=== PATIENT | female | born 1975 | race Caucasian/White ===

== ENCOUNTER 2017-06-14 13:28 | Emergency (ER) | payer OTHER ==
[2017-06-14] MEDS ORDERED: Aspirin 81 MG Tab.Chew PO ONE (14:07)
--- NOTE | 2017-06-14 14:12 | EDM.PDOC ---
ED HPI GENERAL MEDICAL PROBLEM - General Chief Complaint: Chest Pain Stated Complaint: CHEST PAIN, SHOULDER PAIN Time Seen by Provider: 06/14/17 13:55 Source of Information: Reports: Patient, Old Records, RN History Limitations: Reports: No Limitations - History of Present Illness INITIAL COMMENTS - FREE TEXT/NARRATIVE: 41 yo female 1 ppd smoker with a FHx of CAD presents with left sided CP that began yesterday while at work. There is radiation to her L arm. Was not exerting herself when the problem began. Pain is worse with deep breathing. No fever. No recent calf pain or leg swelling. Sx's fairly constant and not related to activity other than breathing. Denies SOB. Has no family doctor. Is unaware of diabetes or hyperlipidemia. Onset Date: 06/13/17 Duration: Day(s): (1), Constant Location: Reports: Chest Quality: Reports: Dull Severity: Mild Improves with: Reports: None Worsens with: Reports: Breathing Context: Reports: Other (smoker with a +FHx of CAD) Associated Symptoms: Reports: Chest Pain. 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 (see below) (none) Left Chest Pain Score (Numeric/FACES): 6 - Related Data Allergies Allergy/AdvReac Type Severity Reaction Status Date / Time fentanyl Allergy Rash Verified 12/25/13 14:01 midazolam HCl [From Versed] Allergy Rash Verified 12/25/13 14:01 Home Meds: Home Meds NK [No Known Home Meds] 06/14/17 [History] Past Medical History [employer]ERK History: Reports: - Past Surgical History Female Surgical History: Reports: Section Musculoskeletal Surgical History: Reports: Other (See Below) Other Musculoskeletal Surgeries/Procedures:: arm surgery x2 Social & Family History - Tobacco Use Smoking Status *Q: Current Every Day Smoker Years of Tobacco use: 30 Packs/Tins Daily: 1 - Caffeine Use Caffeine Use: Reports: Coffee, Soda, Tea - Recreational Drug Use Recreational Drug Use: No ED ROS GENERAL - Review of Systems Review Of Systems: See Below Constitutional: Reports: No Symptoms HEENT: Reports: No Symptoms Respiratory: Reports: No Symptoms Cardiovascular: Reports: Chest Pain. Denies: Claudication, Dyspnea on Exertion , Edema, Lightheadedness, Palpitations Endocrine: Reports: No Symptoms GI/Abdominal: Reports: No Symptoms : Reports: No Symptoms Musculoskeletal: Reports: Arm Pain (L arm pain prox to elbow) Skin: Reports: No Symptoms Neurological: Reports: No Symptoms Psychiatric: Reports: No Symptoms ED EXAM, GENERAL - Physical Exam Exam: See Below Exam Limited By: No Limitations General Appearance: Alert, WD/WN, No Apparent Distress Eye Exam: Bilateral Eye: Normal Inspection, PERRL Ears: Normal External Exam, Normal Canal, Hearing Grossly Normal, Normal TMs Ear Exam: Bilateral Ear: Auricle Normal, Canal Normal Nose: Normal Inspection Throat/Mouth: Normal Inspection, Normal Lips, Normal Oropharynx, Normal Voice, No Airway Compromise Head: Atraumatic, Normocephalic Neck: Normal Inspection, Supple Respiratory/Chest: No Respiratory Distress, Lungs Clear, Normal Breath Sounds, No Accessory Muscle Use, Chest Non-Tender Cardiovascular: Regular Rate, Rhythm, No Edema Back Exam: Normal Inspection. No: CVA Tenderness (R), CVA Tenderness (L) Extremities: Normal Inspection, Normal Range of Motion, Non-Tender, No Pedal Edema Neurological: Alert, Oriented, CN II-XII Intact, Normal Cognition, No Motor/ Sensory Deficits Psychiatric: Normal Affect, Normal Mood Skin Exam: Warm, Dry, Intact, Normal Color, No Rash EKG INTERPRETATION EKG Date: 06/14/17 Time: 14:20 Rhythm: NSR Rate (Beats/Min): 74 [place]: Normal P-Wave: Present QRS: Normal ST-T: Normal QT: Normal Comparison: NA - No Prior EKG Course - Vital Signs Last Recorded V/S: Last Vital Signs Temp 35.9 C 06/14/17 13:44 Pulse 86 06/14/17 13:44 Resp 12 06/14/17 13:44 BP 111/66 06/14/17 13:44 Pulse Ox 97 06/14/17 13:44 - Orders/Labs/Meds Orders: Active Orders 24 hr Category Date Time Status Cardiac Monitoring [RC] .As Directed Care 06/14/17 13:59 Active EKG Documentation Completion [RC] ASDIRECTED Care 06/14/17 13:59 Active EKG 12 Lead [EK] Routine Ther 06/14/17 13:59 Ordered Labs: Laboratory Tests 06/14/17 06/14/17 Range/Units 14:21 14:21 D-Dimer, Quantitative < 100 (0.0-400.0) ng/mL Sodium 142 (140-148) mmol/L Potassium 3.7 (3.6-5.2) mmol/L Chloride 107 (100-108) mmol/L Carbon Dioxide 26 (21-32) mmol/L Anion Gap 8.9 (5.0-14.0) mmol/L BUN 10 (7-18) mg/dL Creatinine 0.7 (0.6-1.0) mg/dL Est Cr Clr Drug Dosing 89.48 mL/min Estimated GFR (MDRD) > 60 (>60) Glucose 91 (74-106) mg/dL Calcium 8.7 (8.5-10.1) mg/dL Troponin I < 0.017 (0.000-0.056) ng/mL Meds: Medications Discontinued Medications Generic Name Dose Route Start Last Admin Trade Name Freq PRN Reason Stop Dose Admin Aspirin 324 mg 06/14/17 14:07 06/14/17 14:10 Aspirin PO 06/14/17 14:08 324 mg ONETIME ONE Administration Departure - Departure Time of Disposition: 15:04 Disposition: Home, Self-Care 01 Condition: Good Clinical Impression: Atypical chest pain, Tobacco use disorder Referrals: PCP,None [Primary Care Provider] - Forms: ED Department Discharge - My Orders Last 24 Hours: My Active Orders 06/14/17 13:59 Cardiac Monitoring [RC] .As Directed EKG Documentation Completion [RC] ASDIRECTED EKG 12 Lead [EK] Routine - Assessment/Plan Last 24 Hours: My Active Orders 06/14/17 13:59 Cardiac Monitoring [RC] .As Directed EKG Documentation Completion [RC] ASDIRECTED EKG 12 Lead [EK] Routine
== END 2017-06-14 15:20 | disposition home or self-care (01) ==
LOC: JP.ED 13:28
DX: R07.89 Other chest pain (principal); Z88.8 Allergy status to other drugs, medicaments and biological substances; F17.210 Nicotine dependence, cigarettes, uncomplicated; Z72.0 Tobacco use
CPT/HCPCS: 36415; 80048; 84484; 85379; 93005; 99285; A9270

== ENCOUNTER 2018-10-26 09:58 | Day surgery (SDC) | payer OTHER ==
[2018-10-26] MEDS ORDERED: fentaNYL 100 MCG/2 ML SDV ONE (10:59)
[2018-10-26] MEDS ORDERED: Midazolam 1 MG/ML 2 ML SDV ONE (10:59)
[2018-10-26] MEDS ORDERED: Propofol 200 MG/20 ML SDV ONE ×2 (10:59→12:24)
[2018-10-26] MEDS ORDERED: Lactated Ringers 1,000 ML IV SCH (11:30)
--- NOTE | 2018-10-26 14:10 | OR ---
DATE OF PROCEDURE: 10/26/2018 PREOPERATIVE DIAGNOSIS: Upper abdominal pain. POSTOPERATIVE DIAGNOSES: Gastroesophageal reflux disease, hiatal hernia, small pre-pyloric ulcers, upper abdominal pain. PROCEDURES PERFORMED: Esophagogastroduodenoscopy with antral biopsies for CLOtest and for pathology to look for Helicobacter pylori, biopsy of gastroesophageal junction. ANESTHESIA: IV anesthesia with monitored anesthesia care. SURGEON: Subhash Locke MD INDICATION: This 43-year-old white female is referred for upper endoscopy because of upper abdominal pain. She says she has undergone apparently two prior upper endoscopies, one in [place], [place] in about 2000, and the other in 2010 here in [place]. I counseled her for an upper endoscopy with possible biopsy including risks and alternatives, and she gave her informed consent to proceed. DESCRIPTION OF PROCEDURE: The patient was placed in the left lateral decubitus position. IV anesthesia was administered by the Anesthesia Service. Time-out was held. The flexible video Olympus upper endoscope was passed through her mouth, down her esophagus, and into her stomach. The scope was easily passed through the pylorus into the duodenum reaching its third portion. The scope was then slowly withdrawn examining the mucosa throughout. The duodenal mucosa appeared unremarkable. The scope was brought up through the pylorus into the antrum. The antrum appeared to have some small prepyloric ulcers with inflammation. The scope was retroflexed. The proximal stomach appeared unremarkable. The scope was straightened. We obtained antral biopsies for CLOtest and for pathology to look for Helicobacter pylori. The scope was then brought up to the GE junction. A hiatal hernia was present. She already knew about this. The gastroesophageal junction was then biopsied to obtain at least six biopsies. The scope was then brought proximally up through the remainder of the esophagus which otherwise appeared unremarkable and was removed. She tolerated the procedure well. Subhash Lcoke MD /[id number] MTDD
== END 2018-10-26 14:03 | disposition home or self-care (01) ==
LOC: JP.SDS 09:58
PROVIDERS: ATTEND Surgery
DX: K29.50 Unspecified chronic gastritis without bleeding (principal); K21.9 Gastro-esophageal reflux disease without esophagitis; K44.9 Diaphragmatic hernia without obstruction or gangrene; K25.9 Gastric ulcer, unspecified as acute or chronic, without hemorrhage or perforation; Z88.5 Allergy status to narcotic agent; Z88.8 Allergy status to other drugs, medicaments and biological substances
CPT/HCPCS: 43239; 87081; 88305; J2704; J7120; J2250; J3010